=== PATIENT | male | born 1945 | race Caucasian/White ===

== ENCOUNTER 2023-05-24 20:47 | Emergency (ER) | payer OTHER, SELFPAY ==
[2023-05-24 20:54] VITALS: BP 146/65; PULSE 75; RESP 18; TEMP 36.9; O2SAT 99; BMI 22.2
--- NOTE | 2023-05-24 20:57 | DI.RAD.S_ITS ---
PROCEDURE: XR SHOULDER LT MIN 2V INDICATIONS: fall, shoulder pain TECHNIQUE: 2 views of the shoulder were acquired. COMPARISON: None. FINDINGS: Bones: There is an irregular, comminuted fracture seen involving the left distal clavicle. No dislocation can be seen. The visualized ribs appear intact. Soft tissues: No suspicious soft tissue calcifications. No pneumothorax is seen. IMPRESSION: Left distal clavicle fracture. Dictated by: Dash Pollard M.D. on 05/24/2023 at 20:17 Approved by: Dash Pollard M.D. on 05/24/2023 at 20:17
--- NOTE | 2023-05-24 21:00 | DI.CT.S_ITS ---
PROCEDURE: CT CERVICAL SPINE WO CON INDICATIONS: fall, hit head TECHNIQUE: Noncontrast 3 mm thick sections acquired from the skull base to the T4 level. Sagittal and coronal reformats were then constructed. For radiation dose reduction, the following was used: automated exposure control, adjustment of mA and/or kV according to patient size. COMPARISON: [facility], CT, CT HEAD/BRAIN WO CON, 05/24/2023, 21:06. [facility], CR, XR SHOULDER LT MIN 2V, 05/24/2023, 20:58. FINDINGS: Image quality: Excellent. Bones: No fractures or dislocations. Visualized superior ribs are intact. Focal degenerative change is seen involving the C1-C2 interface anteriorly. Mild disc space narrowing can be seen at C3-C4. Minimal anterolisthesis can be seen at C6-C7. Multiple levels of facet hypertrophy can be seen, left worse than right. Soft tissues: Prevertebral soft tissues are normal in thickness. No paravertebral hematomas. No apical pneumothoraces. Atherosclerotic calcification is noted. IMPRESSION: No displaced fracture or traumatic subluxation. Underlying cervical spine degenerative changes are seen. Dictated by: Dash Pollard M.D. on 05/24/2023 at 20:29 Approved by: Dash Pollard M.D. on 05/24/2023 at 20:31
--- NOTE | 2023-05-24 21:00 | DI.CT.S_ITS ---
PROCEDURE: CT HEAD/BRAIN WO CON INDICATIONS: fall, hit head TECHNIQUE: Noncontrast 4.5 mm thick angled axial sections acquired from the foramen magnum to the vertex, with coronal and sagittal reformats. For radiation dose reduction, the following was used: automated exposure control, adjustment of mA and/or kV according to patient size. COMPARISON: [facility], CT, CT CERVICAL SPINE WO CON, 05/24/2023, 21:06. [facility], CR, XR SHOULDER LT MIN 2V, 05/24/2023, 20:58. FINDINGS: Image quality: Mild streak artifact can be seen through the skull base. CSF spaces: Basal cisterns are patent. No extra-axial fluid collections. The ventricles are symmetric in size and shape. Brain: No intracranial bleeds or masses. There is cerebral volume loss for age, with resultant ventricular and sulcal prominence. There are periventricular and deep white matter chronic small vessel ischemic changes. There is intracranial internal carotid artery atherosclerosis. Skull and face: Scalp laceration can be seen involving the left lateral forehead, with soft tissue thickening and soft tissue gas. No underlying calvarial fracture can be seen. Calvarium and visualized facial bones appear intact, without suspicious lesions. Sinuses: There is complete opacification of the visualized right maxillary sinus and the right frontal sinus. There is opacification of the anterior right ethmoid air cells. No abnormal fluid is seen within the mastoid air cells. IMPRESSION: Left forehead scalp laceration seen, with scalp thickening and soft tissue gas. No displaced calvarial fracture can be seen. No acute intracranial hemorrhage is seen. No acute intracranial process is seen. Prominent right-sided paranasal sinus disease noted. Dictated by: Dash Pollard M.D. on 05/24/2023 at 20:31 Approved by: Dash Pollard M.D. on 05/24/2023 at 20:32
--- NOTE | 2023-05-24 21:18 | ED.FALL ---
HPI - Fall General Chief Complaint: Fall Stated Complaint: head lac/fall Time Seen by Provider: 05/24/23 20:48 Source: patient Mode of arrival: Ambulatory History of Present Illness HPI Narrative: 78-year-old male presents for evaluation of left shoulder pain and left forehead pain after a fall. Patient was in a park when he slipped and fell approximately 5 ft, landing on his left upper back and striking his left forehead against the ground. Denies loss of consciousness, denies use of blood thinners. Reports that he was up-to-date on his tetanus shot. Related Data Previous Rx's Medication Instructions Recorded hydrocodone 5 mg-acetaminophen 325 1 tab PO Q8H PRN pain #10 tabs 05/24/23 mg tablet Allergies Allergy/AdvReac Type Severity Reaction Status Date / Time No Known Drug Allergies Allergy Verified 05/24/23 22:08 Review of Systems Review of Systems Narrative: See HPI Exam Initial Vital Signs Initial Vital Signs: Vital Signs Temperature 98.4 F 05/24/23 20:54 Pulse Rate 75 05/24/23 20:54 Respiratory Rate 18 05/24/23 20:54 Blood Pressure 146/65 H 05/24/23 20:54 Pulse Oximetry 99 05/24/23 20:54 Oxygen Delivery Method Room Air 05/24/23 20:54 Const: Awake, alert, no acute distress, nontoxic appearing Head: Superficial laceration with small hematoma just lateral to left eyebrow EENT: PERRLA, TM normal bilaterally Cardiac: regular rate, regular rhythm RESP: unlabored, clear bilaterally, no wheezing MSK: Tenderness to palpation along left shoulder joint, reduced range of motion, limited 90? flexion Skin: Warm, Dry, superficial this exact laceration left forehead as described, superficial abrasion overlying left scapula Neuro: AO x3, CN II-XII grossly intact, moves all extremities Course Orders Ordered: Discontinued Medications Hydrocodone Bitart/Acetaminophen (Hydrocodone/Acet 5/325 Prepack) 1 bottle MISC DIRECTED ONE Stop: 05/24/23 22:04 Last Admin: 05/24/23 22:11 Dose: 1 bottle Documented By: TREVON Vital Signs Vital signs: Vital Signs - 8 hr 05/24/23 20:54 Temperature 98.4 F Pulse Rate 75 Respiratory Rate 18 Blood Pressure 146/65 H Pulse Oximetry 99 Oxygen Delivery Method Room Air MDM - Fall MDM Narrative Medical decision making narrative: Well-appearing patient with head injury and shoulder pain after falling in the park. Reports up-to-date on tetanus shot. Patient neurologically intact, due to age head CT is ordered. Head CT and C-spine negative for acute traumatic findings. Shoulder and scapular x-ray significant only for distal clavicle fracture. Patient placed in sling for comfort. Informed of all imaging findings. Patient does not live in the area, but states that he knows several orthopedic surgeons back home and will follow up with 1 of them when he gets back next week. Pain medication sent to pharmacy of choice. #415 - Emergency Medicine: Utilization of CT for Minor Blunt Head Trauma (Adult) [] Patient has one or more of the following conditions that are excluded from the ???measure (select all that apply): ?[] Patient has ventricular shunt ?[] Patient has brain tumor ?[] Patient is ?[] Patient has multi-system trauma ?[] Patient taking an antiplatelet medication (excluding aspirin) ?[] Head CT not ordered by emergency wound care center consultant ?[] Head CT ordered for reasons other than trauma [] Patient is 18 or older, presenting with minor blunt head trauma. Head CT (including ?cosigned orders) was ordered by an emergency wound care center consultant for trauma because ?(select one or more): [SATISFIES MIPS PERFORMANCE] Reasons: ?[x] Patient is 65 or older ?[] Patient GCS < 15 ?[] Patient has focal neurologic deficit ?[] Patient has severe headache ?[] Patient is vomiting [] Severe/dangerous mechanism of injury was identified (select one or more): ?[]MVA with: patient ejection, of another passenger, rollover, speed > 40mph, ?airbag deployment, route delivery service driver or passenger on ATV or motorcycle ?[] pedestrian or bicyclist without helmet: struck my motorized vehicle, in bicycle ?crash ?[] fall > 3 feet or 5 stairs ?[] head struck by high-impact object (hammer, baseball, baseball bat, heavy object ?such as falling brick) ?[] Other: [] (ie. assault description) [] Patient has physical signs of basilar skull fracture present (including ?hemotympanum, ?raccoon? eyes, CSF leakage from ear or nose, Geiger?s sign) [] Patient suspected of taking anticoagulant medication [] Patient has thrombocytopenia [] Patient has coagulopathy [] Patient has loss of consciousness and (must select one of the following): ?[]Headache ?[]Short term memory deficit ?[]Alcohol/drug intoxication ?[]Evidence of trauma above the clavicles ?[]Age 60 or older ?[] Post-traumatic seizure [] Patient has post-traumatic amnesia and (must select one of the following): ?[]Headache ?[]Short term memory deficit ?[]Alcohol/drug intoxication ?[]Evidence of trauma above the clavicles ?[]Age 60 or older ?[] Post-traumatic seizure [] Patient is 18 or older, presenting with minor blunt head trauma. Head CT (including ?cosigned orders) was ordered by an emergency wound care center consultant for trauma, no ?indication specified. [DOES NOT SATISFY MIPS PERFORMANCE] ?? Discharge Plan Departure Patient Disposition: Home Clinical Impression: Abrasion of forehead Closed fracture of distal clavicle Qualifiers: Encounter type: initial encounter Laterality: left Instructions: DI for Clavicle Fracture-Adult, DI for Abrasion Activity Restrictions/Additional Instructions: You may take a shower tonight, however do not scrub the area of the laceration. Pat the area slightly to dry it. Please follow up with an orthopedic surgeon for your clavicle fracture. Wear the sling when active to help support your shoulder, sometimes sleeping upright can help with pain. The pain medications prescribed today may cause constipation or lightheadedness. Please be careful when taking this medication to avoid repeat falls. Do not take this medication with alcohol or before operating heavy machinery. Take a stool softener daily Prescriptions: New hydrocodone-acetaminophen 5-325 mg tablet 1 tab PO Q8H PRN (Reason: pain) Qty: 10 0RF Stand Alone Forms: Patient Portal/API
--- NOTE | 2023-05-24 21:22 | DI.RAD.S_ITS ---
PROCEDURE: XR SCAPULA LT INDICATIONS: GLF, SCAPULAR PAIN TECHNIQUE: 2 views of the scapula were acquired. COMPARISON: [facility], CT, CT CERVICAL SPINE WO CON, 05/24/2023, 21:06. [facility], CT, CT HEAD/BRAIN WO CON, 05/24/2023, 21:06. [facility], CR, XR SHOULDER LT MIN 2V, 05/24/2023, 20:58. FINDINGS: Bones: A comminuted distal clavicle fracture is again seen. No scapular fracture can be seen. No glenohumeral dislocation is seen. Soft tissues: Overlying soft tissues appear normal. IMPRESSION: Comminuted distal clavicle fracture, without a rachna scapular fracture seen. If it would be helpful for clinical management decision making in this patient with this given history, please consider a dedicated shoulder CT for further evaluation. Dictated by: Dash Pollard M.D. on 05/24/2023 at 20:50 Approved by: Dash Pollard M.D. on 05/24/2023 at 20:51
[2023-05-24] MEDS: HYDROCODONE/ACET 5/325 PREPACK 1 BOTTLE MISC (22:11)
[2023-05-24 22:16] VITALS: BP 162/72; PULSE 74; RESP 14; O2SAT 99
== END 2023-05-24 22:18 | disposition home or self-care (01) ==
PROVIDERS: Emergency Provider Emergency Medicine
DX: S42.032A Displaced fracture of lateral end of left clavicle, initial encounter for closed fracture (principal); S00.81XA Abrasion of other part of head, initial encounter; W01.0XXA Fall on same level from slipping, tripping and stumbling without subsequent striking against object, initial encounter
CPT/HCPCS: 70450; 72125; 73010; 73030; 99282; 99284